=== PATIENT | female | born 1985 | race Caucasian/White ===

== ENCOUNTER 2019-12-22 08:12 | Outpatient (CLI) | payer BC ==
--- NOTE | 2019-12-22 16:20 | NM ---
HEPATOBILIARY SCAN: 12/22/19 HISTORY: Right upper quadrant pain. RADIOPHARMACEUTICAL: 5 millicuries technetium 99m Mebrofenin injected intravenously. CCK-8: Patient was pretreated with 1.5 micrograms CCK-8 intravenously 30 minutes prior to the injecti on of the radiopharmaceutical. A 1.5 microgram infusion over 30 minutes was given on filling of the g allbladder to evaluate gallbladder contractility. FINDINGS: There is good tracer extraction of the liver with prompt excretion into the biliary tract and small b owel loops and normal filling of the gallbladder. The calculated gallbladder ejection fraction following CCK-8 administration measures 53%. IMPRESSION: Normal exam. POS: [facility]
== END 2019-12-22 08:13 | disposition home or self-care (01) ==
LOC: NM 08:12
PROVIDERS: ATTEND Internal Medicine Gastroenterology
DX: R10.11 Right upper quadrant pain (principal)
CPT/HCPCS: 78227; A9537